=== PATIENT | male | born 1995 | race Caucasian/White ===

== ENCOUNTER 2021-07-20 13:12 | Emergency (ER) | payer OTHER ==
[~2021-07-20] VITALS: Ht 172.7 cm; Wt 65.8 kg
--- NOTE | ~2021-07-20 | EMS ---
[address] [address] EMS Patient Care Report Name: NADER ZHOU Room #: DEP JOSEPH Wright#: [id number] Admission: 07/20/21 Attend Phys: Discharge: 07/20/21 Date of : [birth year] Report #: [id number] THIS REPORT FOR: //name// Report Transmitted: 07/23/2021 07:58 EMS Care Summary [place], [place]/[facility] Incident [id number] @ 07/20/2021 12:34 Incident Location [address] [place] [address] Patient NADER ZHOU Male, 26 Years 1995 Patient Address Patient History Schizophrenia,Anxiety, Patient Allergies No known allergies, Patient Medications Invega, Chief Complaint NON-COMPLIANT WITH INVEGA INJECTIONS Disposition Transported No Lights/[place] Dispatch Reason Chest Pain (Non-Traumatic) Transported To [facility] Narrative PUMPER 37/MEDIC 30 WERE DISPATCHED TO THE ADDRESS LISTED PREVIOUSLY IN THIS REPORT ON A PATIENT WITH CHEST PAIN. UPON ARRIVAL, EMS OBSERVED ONE MALE PATIENT AMBULATING TOWARDS EMS WITH A STEADY GAIT. PATIENT WAS TRACKING EMS UPON APPROACH. PATIENT INFORMED EMS THAT HE HAD BEEN NON-COMPLIANT WITH HIS PRESCRIBED PSYCHATRIC MEDICATION AND HAD BEEN HAVING INCREASED HALLUCINATIONS. PATIENT THEN AMBULATED INTO THE AMBULANCE AND PLACED HIMSELF [place] [address] EMS Patient Care Report Name: NADER ZHOU Room #: DEP ER Kyle#: [id number] Admission: 07/20/21 Attend Phys: Discharge: 07/20/21 Date of : [birth year] Report #: [id number] INCIDENT. ONCE IN THE AMBULANCE, VITAL SIGN MONITORING CONTINUED. ONCE ENROUTE TO THE RECEIVING FACILITY ([facility]), VITAL SIGN MONITORING CONTINUED AND RADIO REPORT WAS GIVEN. UPON ARRIVAL AT THE RECEIVING FACILITY, PATIENT AMBULATED FROM THE AMBULANCE TO THE HOSPITAL CHAIR WITHOUT INCIDENT. VERBAL REPORT WAS GIVEN TO THE PATIENT'S NURSE AND PATIENT CARE WAS TRANSFERRED. Initial Vitals @12:46P: 67,R: 16,BP: 144/93,Pain: 0/10,GCS: 15,SpO2: 99,Revised Trauma: 12, Assessments @12:41MENTAL:Time Oriented,Person Oriented,Event Oriented,Hallucinations,Place Oriented,SKIN:HEENT:LUNG SOUNDS:ABDOMEN:PELVIS//GI:EXTREMITIES:PULSE:NEURO: Impression Behavioral/psychiatric episode Procedures @12:41 ALS Assessment Response: UnchangedSucceeded Timeline 12:33,Call Received 12:33,Dispatch Notified 12:34,Dispatched 12:35,En Route 12:41,At Patient 12:41,On Scene 12:41,ALS Assessment,Response: UnchangedSucceeded, 12:46,BP: 144/93 M,PULSE: 67,RR: 16 R,SPO2: 99 Ox,ETCO2: ,BG: ,PAIN: 0,GCS: 15, 12:52,Depart Scene 13:02,At Destination 13:32,Call Closed Disclaimer [email or web address] Copyright 2020 [employer], [email or web address] This EMS Care Summary contains data elements from the applicable legal record (which may be displayed differently). It is designed to provide pertinent information for the following purposes: continuity of care, clinical quality, and state data reporting. The complete legal record is available to ED staff and administrators of the receiving hospital in [facility] Patient Tracker. All data is provided "as is."
[2021-07-20 13:13] VITALS: BP 121/83
[2021-07-20 15:25] LABS: BASOPHILS 0.4 % (0.0-2.0); HEMATOCRIT 41.1 % (42.0-52.0); MCH 31.3 pg (26.0-34.0); MCHC 34.1 g/dL (28.0-37.0); MCV 91.7 fL (80.0-100.0); MONOCYTES 6.1 % (1.0-8.0); PLATELET COUNT 245 thou/uL (150-400); POLYS 56.5 % (36.0-66.0); RBC 4.48 mil/uL (4.50-6.00); RDW 12.1 % (10.5-14.5); WBC 5.4 thou/uL (4.0-11.0)
[2021-07-20 15:51] LABS: CALCIUM 8.9 mg/dL (8.5-10.1); CREATININE 0.7 mg/dL (0.7-1.3)
[2021-07-20 15:56] LABS: SALICYLATE 3.2 mg/dL (2.8-20.0); TOTAL BILIRUBIN 0.3 mg/dL (0.2-1.0); TOTAL PROTEIN 7.2 g/dL (6.4-8.2)
== END 2021-07-20 16:20 ==
LOC: ER 13:12
PROVIDERS: Nurse Practitioner
DX: F20.9 Schizophrenia, unspecified (principal); Z20.822 Contact with and (suspected) exposure to COVID-19; F19.10 Other psychoactive substance abuse, uncomplicated; F41.9 Anxiety disorder, unspecified